=== PATIENT | male | born 1970 | race Native Hawaiian/Other Pacific Islander ===

== ENCOUNTER 2018-01-12 09:33 | Outpatient (CLI) | payer OTHER | END 2018-01-12 18:50 | disposition home or self-care (01) | LOC: LABW 09:33 | DX: D75.1 Secondary polycythemia (principal) | CPT/HCPCS: 36415; 85014; 85018 ==

== ENCOUNTER 2019-05-10 13:53 | Emergency (ER) | payer OTHER ==
[~2019-05-10] VITALS: Ht 182.9 cm; Wt 143.8 kg
[2019-05-10 14:01] VITALS: TEMP 98
[2019-05-10] MEDS ORDERED: CHOLESTEROL MEDS (14:40)
[2019-05-10] MEDS ORDERED: BP MED (14:40)
[2019-05-10] MEDS ORDERED: PAXIL (14:41)
[2019-05-10 14:42] LABS: POTASSIUM 4.2 mmol/L (3.6-5.2); SODIUM 135 mmol/L (136-145)
[2019-05-10 14:52] LABS: PLATELET COUNT 191 K/uL (142-355)
[2019-05-10 16:11] VITALS: BP 133/80
== END 2019-05-10 16:11 | disposition home or self-care (01) ==
LOC: ED 13:53
PROVIDERS: Emergency Medicine
DX: R55 Syncope and collapse (principal)
CPT/HCPCS: 36415; 80053; 82550; 82553; 83874; 84484; 85027; 93005; 94664; 96360; 96375; 99284; J2930